=== PATIENT | female | born 1990 | race Caucasian/White ===

== ENCOUNTER 2017-04-29 13:02 | Emergency (ER) | payer MEDICAID ==
[~2017-04-29] VITALS: Ht 157.5 cm; Wt 59.0 kg
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
--- NOTE | 2017-04-29 13:52 | NUR ---
CALLED [employer] NON EMERGENCY DISPATCH/LICENSED T[employer] CONSULTANT 824, THEY WILL BE SENDING A UNIT TO TALK TO THE PATIENT.
--- NOTE | 2017-04-29 14:11 | NUR ---
Patient discharged to home in stable condition. Written and verbal after care instructions given. Patient verbalizes understanding of instruction.
--- NOTE | 2017-04-29 14:11 | NUR ---
PT DOESNT WANT TO WAIT FOR [employer].
[2017-04-29 14:13] VITALS: BP 125/85
== END 2017-04-29 14:14 | disposition home or self-care (01) ==
LOC: ER 13:05
DX: T76.21XA Adult sexual abuse, suspected, initial encounter (principal); F10.10 Alcohol abuse, uncomplicated; F17.200 Nicotine dependence, unspecified, uncomplicated
CPT/HCPCS: 99283; A4606; Z7610

== ENCOUNTER 2017-06-19 20:16 | Emergency (ER) | payer MEDICAID, OTHER ==
[~2017-06-19] VITALS: Ht 162.6 cm; Wt 59.0 kg
[2017-06-19 20:27] VITALS: BP 123/70
== END 2017-06-19 21:39 | disposition home or self-care (01) ==
LOC: ER 20:21
DX: J32.9 Chronic sinusitis, unspecified (principal); F17.200 Nicotine dependence, unspecified, uncomplicated
CPT/HCPCS: A4606; Z7502; Z7610

== ENCOUNTER 2019-10-28 11:18 | Inpatient (IN) | payer BC, OTHER ==
[~2019-10-28] VITALS: Ht 157.5 cm; Wt 55.9 kg
--- NOTE | 2019-10-28 11:34 | NUR ---
CAME IN TO ER AND STATES "Woke up this am with abdominal pain nausea/vomiting-bile", TO ER BED 2, HOOKED TO MONITOR, CHANGED TO HOSP GOWN, WARM BLANKET PROVIDED, PATIENT AAO x 4, BREATHING ANNABELLA AND UNLABORED. DR YOUNG AT BEDSIDE FOR EVAL.
[2019-10-28] MEDS ORDERED: MORPHINE SULFATE INJ 4 MG/ML DISP.SYRIN ONE (11:57)
[2019-10-28] MEDS ORDERED: ONDANSETRON HCL/PF 4 MG/2 ML VIAL ONE (11:57)
[2019-10-28] MEDS ORDERED: ONDANSETRON HCL/PF 4 MG/2 ML VIAL IVP ONE (12:00)
[2019-10-28] MEDS ORDERED: MORPHINE SULFATE INJ 2 MG/ML DISP.SYRIN IV ONE (12:00)
[2019-10-28] MEDS ORDERED: IV NS 0.9% 1,000 ML BAG IV ONE (12:00)
[2019-10-28 12:01] LABS: APPEARANCE,URINE CLEAR (CLEAR); BILIRUBIN,URINE NEGATIVE (NEGATIVE); BLOOD, URINE NEGATIVE Ery/uL (NEGATIVE); COLOR,URINE YELLOW (YELLOW); KETONES,URINE NEGATIVE (NEGATIVE); LEUKOCYTE ESTERASE ,URINE NEGATIVE (NEGATIVE); NITRITE, URINE NEGATIVE (NEGATIVE); PROTEIN,URINE NEGATIVE (NEGATIVE); UGLUCOSE NEGATIVE (NEGATIVE); UROBILINOGEN,URINE 0.2 EU/dL (0.2)
[2019-10-28 12:12] LABS: BASOPHILS # (AUTO) 0.1 /CMM (0.0-0.2); BASOPHILS % (AUTO) 0.7 % (0.0-2.0); EOSINOPHILS % (AUTO) 0.8 % (0.0-6.0); HEMATOCRIT 38 % (33-45); HEMOGLOBIN 12.4 g/dL (11.5-14.8); LYMPHOCYTES # (AUTO) 1.4 /CMM (0.8-4.8); LYMPHOCYTES % (AUTO) 19.3 % (20.0-44.0); MEAN CORPUSCULAR HGB CONC 33 g/dl (31.0-36.0); MEAN CORPUSCULAR VOLUME 88 fL (82-100); MONOCYTES # (AUTO) 0.4 /CMM (0.1-1.30); MONOCYTES % (AUTO) 5.7 % (2.0-12.0); NEUTROPHILS # (AUTO) 5.3 /CMM (1.8-8.9); NEUTROPHILS % (AUTO) 73.5 % (43.0-81.0); PLATELET COUNT (AUTO) 146 /CMM (150-450); RED BLOOD CELL COUNT(AUTO) 4.31 MIL/uL (4.0-5.2); WHITE BLOOD COUNT (AUTO) 7.2 K/uL (4.3-11.0)
[2019-10-28 12:24] LABS: CREATININE 0.7 mg/dL (0.6-1.3); POTASSIUM 3.7 mmol/L (3.5-5.1)
[2019-10-28 12:37] LABS: ALBUMIN 3.7 g/dL (3.4-5.0); BILIRUBIN,DIRECT 0.1 mg/dL (0.0-0.2); BILIRUBIN,TOTAL 0.3 mg/dL (0.2-1.0); TOTAL PROTEIN, SERUM 7.2 g/dL (6.4-8.2)
[2019-10-28] MEDS ORDERED: IV NS 0.9% 250 ML IV ONE (12:40)
[2019-10-28] MEDS ORDERED: IOHEXOL-300 100 ML VIAL IV ONE (12:40)
[2019-10-28] MEDS ORDERED: OMEP20CA15 PO (13:25)
[2019-10-28] MEDS ORDERED: DESO1TAB6 PO (13:25)
--- NOTE | 2019-10-28 13:25 | NUR ---
GUERA BERGMAN CALLED [phone]
--- NOTE | 2019-10-28 13:28 | NUR ---
PARTNER JOSE LEFT CONTACT # [phone]
[2019-10-28] MEDS ORDERED: PIPERACILLIN /TAZOBACTAM 3.375 G in IV D5W 50 ML IV ONE (14:00)
[2019-10-28] MEDS ORDERED: PIPERACILLIN /TAZOBACTAM 3.375 G VIAL IV ONE (14:12)
--- NOTE | 2019-10-28 15:23 | NUR ---
REPORT GIVEN TO EVELINA GUADARRAMA. PT AWAITING TRANSFER TO FLOOR.
--- NOTE | 2019-10-28 15:45 | NUR ---
RECEIVED PT FROM ER WITH DX OF ACUTE APPENDICITIS. PT IS ALERT AND ORIENTED X4.VERBALLY RESPONSIVE.NO SOB ON ROOM AIR. SKIN INTACT. AMBULATES AD WILL WITH STEADY GAIT.WITH BRP.C/O SEVERE ABD PAIN WILL DO PAIN MGT ORDERED. AWAITING SURGICAL CONSULT WITH DR PETER BERGMAN. ON NPO.CALL LIGHT PLACED WITHIN REACH.
[2019-10-28] MEDS ORDERED: ONDANSETRON HCL/PF 4 MG/2 ML VIAL IVP PRN (16:00)
[2019-10-28] MEDS: MORPHINE SULFATE INJ 2 MG/ML DISP.SYRIN IV PRN ×2 (16:09→22:44)
[2019-10-28] MEDS: IV NS 0.9% 1,000 ML IV PRN (16:09)
[2019-10-28 16:13] VITALS: BP 125/72
[2019-10-28] MEDS ORDERED: PIPERACILLIN /TAZOBACTAM 4.5 G in IV D5W 50 ML IV SCH (18:00)
--- NOTE | 2019-10-28 19:23 | NUR ---
PT RESTING IN BED AWAITING SURGICAL CONSULT.WITH ONGOING IVF INFUSION OF NS RUNNING AT 125 ML/HR INFUSING WELL. ON NPO. PRN PAIN MGT PROVIDED. CALL LIGHT PLACED WITHIN REACH.
--- NOTE | 2019-10-28 19:50 | NUR ---
MS RN NOTES PATIENT IN BED, AWAKE, ALERT AND ORIENTED X 4. BREATHING EVEN AND UNLABORED ON ROOM AIR. SHOWS NO SIGNS OF ACUTE RESPIRATORY DISTRESS. NO ACUTE PAIN. IV ON LAC 18G RUNNING NS AT 125ML/HR. SHOWS NO SIGNS OF INFILTRATION, NO REDNESS. SAFETY PRECAUTIONS IN PLACE. BED IN LOWEST POSITION, LOCKED, AND CALL LIGHT KEPT WITHIN REACH. WILL CONTINUE TO MONITOR.
[2019-10-28 20:00] VITALS: BP 117/65
[2019-10-28] MEDS: PIPERACILLIN /TAZOBACTAM 3.375 G in IV D5W 100 ML IV SCH (20:27)
--- NOTE | 2019-10-28 22:44 | NUR ---
MS RN NOTES PATIENT COMPLAINING OF SEVERE PAIN. GIVEN PRN MORPHINE AT [phone]. VITAL SIGNS WNL. WILL CONTINUE TO MONITOR.
[2019-10-29] VITALS (10 sets, daily range): BP systolic 104–129; BP diastolic 50–69
--- NOTE | 2019-10-29 01:14 | NUR ---
MS RN NOTES PATIENT REQUESTED ATIVAN. RECEIVED ORDERS FROM MD AND FOLLOWED THRU. GIVEN ATIVAN AT [phone]. WILL CONTINUE TO MONITOR.
[2019-10-29] MEDS ORDERED: LORAZEPAM 0.5 MG TABLET PO PRN (01:30)
[2019-10-29] MEDS: PIPERACILLIN /TAZOBACTAM 3.375 G in IV D5W 100 ML IV SCH ×3 (03:39→20:32)
[2019-10-29] MEDS: IV NS 0.9% 1,000 ML IV PRN ×2 (03:39→17:18)
[2019-10-29] MEDS: MORPHINE SULFATE INJ 2 MG/ML DISP.SYRIN IV PRN (05:47)
--- NOTE | 2019-10-29 06:53 | NUR ---
MS RN NOTES PATIENT IN BED, ASLEEP, ALERT AND ORIENTED X 4. BREATHING EVEN AND UNLABORED ON ROOM AIR. SHOWS NO SIGNS OF ACUTE RESPIRATORY DISTRESS. NO ACUTE PAIN. IV ON LAC 18G RUNNING NS AT 125ML/HR. SHOWS NO SIGNS OF INFILTRATION, NO REDNESS. ALL DUE MEDICATIONS GIVEN. SAFETY PRECAUTIONS IN PLACE. BED IN LOWEST POSITION, LOCKED, AND CALL LIGHT KEPT WITHIN REACH. WILL ENDORSE TO ONCOMING NURSE.
[2019-10-29 07:22] LABS: BASOPHILS % (AUTO) 0.6 % (0.0-2.0); EOSINOPHILS % (AUTO) 1.6 % (0.0-6.0); HEMATOCRIT 35 % (33-45); HEMOGLOBIN 11.3 g/dL (11.5-14.8); LYMPHOCYTES # (AUTO) 1.4 /CMM (0.8-4.8); LYMPHOCYTES % (AUTO) 22.3 % (20.0-44.0); MEAN CORPUSCULAR HGB CONC 33 g/dl (31.0-36.0); MEAN CORPUSCULAR VOLUME 90 fL (82-100); MONOCYTES # (AUTO) 0.5 /CMM (0.1-1.30); MONOCYTES % (AUTO) 8.2 % (2.0-12.0); NEUTROPHILS # (AUTO) 4.2 /CMM (1.8-8.9); NEUTROPHILS % (AUTO) 67.3 % (43.0-81.0); PLATELET COUNT (AUTO) 103 /CMM (150-450); RED BLOOD CELL COUNT(AUTO) 3.84 MIL/uL (4.0-5.2); WHITE BLOOD COUNT (AUTO) 6.2 K/uL (4.3-11.0)
--- NOTE | 2019-10-29 07:30 | NUR ---
RN MS NOTES PT IN BED, ASLEEP, EASY TO AROUSE, ALERT AND ORIENTED, NO COMPLAINT OF PAIN AT THIS TIME, BREATHING PATTERN NORMAL, CALL LIGHT WITHIN REACH, ABLE TO AMBULATE TO THE BATHROOM WITH STEADY GAIT, NEEDS ATTENDED.
[2019-10-29 07:51] LABS: CALCIUM, SERUM 8.4 mg/dL (8.5-10.1); CREATININE 0.7 mg/dL (0.6-1.3); MAGNESIUM 2.1 mg/dL (1.8-2.4); PHOSPHORUS 5.1 mg/dL (2.5-4.9); POTASSIUM 3.4 mmol/L (3.5-5.1)
[2019-10-29] MEDS: PANTOPRAZOLE 40 MG VIAL IV SCH (09:00)
[2019-10-29] MEDS ORDERED: ANESTHESIA TRAY IN PYXIS 1 EA TRAY MC ONE (10:56)
[2019-10-29] MEDS ORDERED: LIDOCAINE HCL/PF 1% 30 ML SDV ONE (10:57)
[2019-10-29] MEDS ORDERED: BUPIVACAINE MPF 0.5% W/EPI INJ 30 ML VIAL ONE (10:57)
[2019-10-29] MEDS ORDERED: SCOPOLAMINE HBR 1 EA PATCH.TD72 TD ONE (11:07)
[2019-10-29] MEDS ORDERED: MIDAZOLAM HCL 2 MG/2ML VIAL ONE ×2 (11:07→11:17)
[2019-10-29] MEDS ORDERED: FENTANYL PF 100MCG/2ML AMPUL ONE (11:08)
[2019-10-29] MEDS ORDERED: FLUMAZENIL 0.5 MG VIAL ONE (11:08)
[2019-10-29] MEDS ORDERED: KETAMINE HCL (500MG/10ML) 50 MG/ML VIAL ONE (11:16)
--- NOTE | 2019-10-29 11:18 | NUR ---
RN MS NOTES PT TRANSPORTED TO [facility] VIA BED IN STABLE CONDITION, RECEIVED BY [facility] NURSE.
[2019-10-29] MEDS ORDERED: SODIUM CHLORIDE IV ONE (11:27)
[2019-10-29] MEDS ORDERED: DEXMEDETOMIDINE IV ONE (11:27)
[2019-10-29] MEDS ORDERED: PROPOFOL 100 ML ONE (11:28)
[2019-10-29] MEDS ORDERED: ACETAMINOPHEN 325 MG TABLET PO PRN (12:30)
[2019-10-29] MEDS ORDERED: MORPHINE SULFATE INJ 2 MG/ML DISP.SYRIN IV PRN (12:30)
--- NOTE | 2019-10-29 13:47 | NUR ---
RN MS NOTES PT BACK FROM SURGERY, RECEIVED PT FROM [facility] STAFF VIA BED, PT IS SLEEPY, ABLE TO ANSWER QUESTIONS, DOES NOT WANT TO HAVE ANY PAIN MED AT THIS TIME, VITAL SIGNS TAKEN AND RECORDED, IV FLUIDS INFUSING WELL, POST OP ORDERS RECEIVED FROM MD, KEPT PT WARM AND COMFORTABLE.
[2019-10-29] MEDS: POTASSIUM CL. PREMIX PERIPHER. 50 ML IV SCH ×2 (14:08→15:25)
[2019-10-29] MEDS: HYDROCODONE/APAP 5/325MG TABLET PO PRN (18:09)
--- NOTE | 2019-10-29 18:41 | NUR ---
RN MS NOTES PT IN BED, AWAKE, ALERT AND ORIENTED, PAIN MEDS GIVEN ORDERED, IV FLUIDS INFUSING WELL, PT ABLE TO AMBULATE TO THE BATHROOM NEEDED, PATIENT EDUCATION PROVIDED REGARDING USE OF INCENTIVE SPIROMETER, ABLE TO RETURN DEMO, ON CLEAR LIQUID DIET, TOLERATING SO FAR, ALL NEEDS ATTENDED, CALL LIGHT WITHIN REACH.
--- NOTE | 2019-10-29 19:30 | NUR ---
MS RN NOTES PATIENT IN BED, RESTING, ALERT AND ORIENTED X 4. BREATHING EVEN AND UNLABORED ON ROOM AIR. SHOWS NO SIGNS OF ACUTE RESPIRATOR DISTRESS, NO ACUTE PAIN. 3 LAP APPY SITES INTACT. PT ABLE TO TOLERATE PAIN AT SURGICAL SITE AND AMBULATING WELL. IV ON LAC 18G RUNNING NS AT 125ML/HR. SHOWS NO SIGNS OF INFILTRATION, NO REDNESS. SAFETY PRECAUTIONS IN PLACE. BED IN LOWEST POSITION, LOCKED, AND CALL LIGHT KEPT WITHIN REACH. WILL CONTINUE TO MONITOR
[2019-10-30] MEDS: HYDROCODONE/APAP 5/325MG TABLET PO PRN ×2 (02:20→12:27)
[2019-10-30] MEDS: PIPERACILLIN /TAZOBACTAM 3.375 G in IV D5W 100 ML IV SCH ×2 (04:53→12:18)
--- NOTE | 2019-10-30 06:45 | NUR ---
MS RN NOTES PATIENT IN BED, ASLEEP, ALERT AND ORIENTED X 4. BREATHING EVEN AND UNLABORED ON ROOM AIR. SHOWS NO SIGNS OF ACUTE RESPIRATOR DISTRESS, NO ACUTE PAIN. 3 LAP APPY SITES INTACT. IV ON LAC 18G RUNNING NS AT 125ML/HR. SHOWS NO SIGNS OF INFILTRATION, NO REDNESS. ALL DUE MEDICATIONS GIVEN. SAFETY PRECAUTIONS IN PLACE. BED IN LOWEST POSITION, LOCKED, AND CALL LIGHT KEPT WITHIN REACH. WILL ENDORSE TO ONCOMING NURSE
[2019-10-30 06:50] LABS: BASOPHILS % (AUTO) 0.2 % (0.0-2.0); EOSINOPHILS % (AUTO) 0.1 % (0.0-6.0); HEMATOCRIT 31 % (33-45); HEMOGLOBIN 10.4 g/dL (11.5-14.8); LYMPHOCYTES % (AUTO) 13.9 % (20.0-44.0); MEAN CORPUSCULAR HGB CONC 33 g/dl (31.0-36.0); MEAN CORPUSCULAR VOLUME 87 fL (82-100); MONOCYTES # (AUTO) 0.6 /CMM (0.1-1.30); MONOCYTES % (AUTO) 7.4 % (2.0-12.0); NEUTROPHILS # (AUTO) 5.9 /CMM (1.8-8.9); NEUTROPHILS % (AUTO) 78.4 % (43.0-81.0); PLATELET COUNT (AUTO) 124 /CMM (150-450); RED BLOOD CELL COUNT(AUTO) 3.59 MIL/uL (4.0-5.2); WHITE BLOOD COUNT (AUTO) 7.5 K/uL (4.3-11.0)
[2019-10-30 06:57] LABS: CALCIUM, SERUM 8.2 mg/dL (8.5-10.1); CREATININE 0.6 mg/dL (0.6-1.3); MAGNESIUM 2.1 mg/dL (1.8-2.4); PHOSPHORUS 3.4 mg/dL (2.5-4.9); POTASSIUM 3.7 mmol/L (3.5-5.1)
--- NOTE | 2019-10-30 07:45 | NUR ---
MS RN NOTES PATIENT RECEIVED IN BED SLEEPING, EASILY AWAKEN BY NAME AND LIGHT TOUCH. ON ROOM AIR WITH NO SIGNS OF RESPIRATORY DISTRESS AT THIS TIME, WITH NON-LABORED EVEN BREATHING. ALERT AND ORIENTED X 4. PATIENT IV ACCESS INTACT AND PATENT. DRESSING INTACT ON ABDOMEN. PATIENT STATING MILD PAIN, WHEN MOVING, PROVIDED COMFORT MEASURES AT THIS TIME. SAFETY PRECAUTIONS IMPLEMENTED WITH BED LOCKED, BED IN THE LOWEST POSITION, BILATERAL SIDE RAILS UP, AND CALL LIGHT WITHIN EASY REACH. WILL CONTINUE TO MONITOR PATIENT.
[2019-10-30] MEDS: PANTOPRAZOLE 40 MG VIAL IV SCH (08:21)
[2019-10-30 08:49] VITALS: BP 108/54
[2019-10-30] MEDS: IV NS 0.9% 1,000 ML IV PRN (09:56)
[2019-10-30 16:57] VITALS: BP 112/57
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
== END 2019-10-30 17:00 | disposition home or self-care (01) | DRG 343 ==
LOC: ER 11:26 → MEDSG2 15:33 → MED 22:08
PROC: 0DTJ4ZZ Resection of Appendix, Percutaneous Endoscopic Approach (ICD-10-PCS; principal; 2019-10-29)
DX: K35.80 Unspecified acute appendicitis (principal); K21.9 Gastro-esophageal reflux disease without esophagitis; D69.6 Thrombocytopenia, unspecified; G35 Multiple sclerosis; Z88.2 Allergy status to sulfonamides
CPT/HCPCS: 36415; 80048-TC; 80076-TC; 81000-TC; 83690-TC; 83735-TC; 84100-TC; 84703-TC; 85025-TC; 85610-TC; 85730-TC; 87081-TC; C9113; C9803-CS; G0378; J1100; J2001; J2250; J2270; J2310; J2405; J2543; J2704; J3010; J3480; J3490; J7030; J7050; J7060; Q9967